=== PATIENT | male | born 1960 | race African-American/Black ===

== ENCOUNTER 2016-08-07 07:50 | Emergency (ER) | payer OTHER ==
[~2016-08-07] VITALS: Ht 180.3 cm; Wt 100.0 kg
[~2016-08-07 07:50] MED LIST: 1-ME1LIQ PO; ATOR80TA PO; GLYB5TAB3 PO; LISI40TA PO; LORTA5 PO; METF-324 PO
[2016-08-07 07:52] VITALS: BP 216/117; PULSE 97; RESP 20; TEMP 98.7; O2SAT 99
[2016-08-07] MEDS ORDERED: ATOR1TAB18 PO (08:18)
[2016-08-07] MEDS ORDERED: GLYB5TAB3 PO (08:18)
[2016-08-07] MEDS ORDERED: HYDR-3516 PO (08:19)
[2016-08-07] MEDS ORDERED: METO50TA PO (08:24)
[2016-08-07] MEDS ORDERED: LISI40TA PO (08:24)
[2016-08-07] MEDS ORDERED: METF-382 PO (08:24)
[2016-08-07] MEDS ORDERED: DIVA250T PO (08:24)
[2016-08-07] MEDS ORDERED: SODIUM CHLOR 0.9% 1000 ML INJ 1,000 ML IV ONE (08:45)
[2016-08-07 09:12] LABS: AUTOMATED NEUTROPHIL # 2.4 TH/MM3 (1.8-7.7); BASOPHIL % 0.4 % (0.0-2.0); EOSINOPHIL # 0.1 TH/MM3 (0-0.4); EOSINOPHIL % 2.1 % (0.0-4.0); HEMATOCRIT 39.4 % (39.0-51.0); HEMO FLAGS DIFF FINAL; LYMPH % 43.4 % (9.0-44.0); LYMPHOCYTE # 2.2 TH/MM3 (1.0-4.8); MEAN CELL VOLUME 87.9 FL (80.0-100.0); MEAN CORPUSCULAR HEMOGLOBIN 30.2 PG (27.0-34.0); MEAN CORPUSCULAR HGB CONC 34.4 % (32.0-36.0); MONO % 6.9 % (0.0-8.0); NEUT % 47.2 % (16.0-70.0); PLATELET COUNT 270 TH/MM3 (150-450); RED BLOOD COUNT 4.48 MIL/MM3 (4.50-5.90); RED CELL DISTRIBUTION WIDTH 12.9 % (11.6-17.2); WHITE BLOOD COUNT 5.1 TH/MM3 (4.0-11.0)
[2016-08-07 09:18] LABS: BLOOD, URINE NEG (NEG); GLUCOSE,URINE 300 mg/dL (NEG); KETONE, URINE TRACE mg/dL (NEG); NITRITE,URINE NEG (NEG); PH, URINE 6.5 (5.0-8.5)
[2016-08-07 09:19] LABS: COMMENT (UR) CULT NOT INDICATED; CULTURE IF INDICATED CULT NOT INDICATED; URINE COLOR STRAW (YELLW/STRAW)
--- NOTE | 2016-08-07 09:24 | PD ---
HPI Chief Complaint: Dizziness Time Seen by Provider: 08:37 Travel History International Travel<30 days: No Contact w/Intl Traveler<30days: No Traveled to known affect area: No History of Present Illness HPI Is a 56-year-old man who presents to the emergency department because he is feeling queasy and dizzy this morning. He is a history diabetes and hypertension. States he was drinking beer late last night. He woke up sort of feeling funny. He took his blood pressure and it was elevated. He took his diabetes and blood pressure medicines just before coming to the emergency department. States since being here is feeling better. No other complaints. History Past Medical History Narrative Medical Hypertension Diabetes Tetanus Vaccination: > 5 Years Influenza Vaccination: No Past Surgical History Surgical History: No Previous Surgery Social History Alcohol Use: Yes (DAILY ) Tobacco Use: No Allergies-Medications (Allergen,Severity, Reaction): Coded Allergies: Celebrex (Verified Allergy, Severe, HIVES, 08/07/16) Reported Meds & Prescriptions Reported Meds & Active Scripts Active Reported Metoprolol Tartrate 50 Mg Tab 50 Mg PO BID Divalproex DR (Divalproex Sodium) 250 Mg Tabdr 250 Mg PO BID Metformin ER (Metformin HCl) 1,000 Mg Kelsie 1,000 Mg PO DAILY With evening meal Lisinopril 40 Mg Tab 40 Mg PO DAILY Hydrocodone-Acetaminophen 5-325 mg Tab 1 Tab PO Q6H PRN Glyburide 5 Mg Tab 5 Mg PO BID Take with meals at the same time each day Atorvastatin (Atorvastatin Calcium) 80 Mg Tab 80 Mg PO HS Review of Systems Except as stated in HPI: all other systems reviewed are Neg Physical Exam Narrative GENERAL: Well-appearing 56-year-old man, no acute distress. SKIN: Focused skin assessment warm/dry. HEAD: Atraumatic. Normocephalic. CARDIOVASCULAR: Regular rate and rhythm. No murmur appreciated. RESPIRATORY: No accessory muscle use. Clear to auscultation. Breath sounds equal bilaterally. GASTROINTESTINAL: Abdomen soft, non-tender, nondistended. Hepatic and splenic margins not palpable. MUSCULOSKELETAL: No obvious deformities. NEUROLOGICAL: Awake and alert. No obvious cranial nerve deficits. Motor grossly within normal limits. Normal speech. Data Data Last Documented VS Vital Signs Date Time Temp Pulse Resp B/P Pulse Ox O2 Delivery O2 Flow Rate FiO2 08/07/16 09:38 80 16 176/98 98 Room Air 08/07/16 07:52 98.7 Orders Complete Blood Count With Diff (08/07/16 08:38) Comprehensive Metabolic Panel (08/07/16 08:38) Urinalysis - C+S If Indicated (08/07/16 08:38) Iv Access Insert/Monitor (08/07/16 08:38) Sodium Chlor 0.9% 1000 Ml Inj (Ns 1000 M (08/07/16 08:45) Labs Laboratory Tests Test 08/07/16 08:29 White Blood Count 5.1 TH/MM3 Red Blood Count 4.48 MIL/MM3 Hemoglobin 13.5 GM/DL Hematocrit 39.4 % Mean Corpuscular Volume 87.9 FL Mean Corpuscular Hemoglobin 30.2 PG Mean Corpuscular Hemoglobin 34.4 % Concent Red Cell Distribution Width 12.9 % Platelet Count 270 TH/MM3 Mean Platelet Volume 9.8 FL Neutrophils (%) (Auto) 47.2 % Lymphocytes (%) (Auto) 43.4 % Monocytes (%) (Auto) 6.9 % Eosinophils (%) (Auto) 2.1 % Basophils (%) (Auto) 0.4 % Neutrophils # (Auto) 2.4 TH/MM3 Lymphocytes # (Auto) 2.2 TH/MM3 Monocytes # (Auto) 0.4 TH/MM3 Eosinophils # (Auto) 0.1 TH/MM3 Basophils # (Auto) 0.0 TH/MM3 CBC Comment DIFF FINAL Differential Comment Urine Color STRAW Urine Turbidity CLEAR Urine pH 6.5 Urine Specific [place] 1.006 Urine Protein NEG mg/dL Urine Glucose (UA) 300 mg/dL Urine Ketones TRACE mg/dL Urine Occult Blood NEG Urine Nitrite NEG Urine Bilirubin NEG Urine Urobilinogen LESS THAN 2.0 MG/DL Urine Leukocyte Esterase NEG Urine WBC LESS THAN 1 /hpf Microscopic Urinalysis Comment CULT NOT INDICATED Sodium Level 131 MEQ/L Potassium Level 3.3 MEQ/L Chloride Level 92 MEQ/L Carbon Dioxide Level 26.8 MEQ/L Anion Gap 12 MEQ/L Blood Urea Nitrogen 9 MG/DL Creatinine 0.80 MG/DL Estimat Glomerular Filtration 120 ML/MIN Rate Random Glucose 193 MG/DL Calcium Level 9.0 MG/DL Total Bilirubin 0.2 MG/DL Aspartate Amino Transf 79 U/L (AST/SGOT) Alanine Aminotransferase 72 U/L (ALT/SGPT) Alkaline Phosphatase 81 U/L Total Protein 8.4 GM/DL Albumin 3.9 GM/DL [facility] Medical Decision Making Medical Screen Exam Complete: Yes Emergency Medical Condition: Yes Interpretation(s) LABS: CBC unremarkable. CMP remarkable for mildly elevated glucose. UA with glucose urea, otherwise unremarkable Differential Diagnosis Dehydration, hyperglycemia, hypertension, infection, other Narrative Course Medical decision making Is a well-appearing 56-year-old man who presented with vague symptoms of sort of queasiness and dizziness this morning is now mostly resolved. I think this is probably some dehydration and maybe a little bit a hangover from drinking last night. His blood pressure is elevated initially. He took his blood pressure medicine already coming down. We'll give him some IV fluid, check some basic labs, recommend outpatient follow-up. Diagnosis Primary Impression: Dizziness Additional Instructions: Continue your current medications. Drink plenty of fluids stay well-hydrated. Follow-up with her primary doctor in the next 2-5 days if you're not feeling completely well. Return to the emergency department for any new or worsening symptoms. Med/Other Pt SpecificInfo: No Change to Meds Disposition: 01 DISCHARGE HOME Condition: Stable Madi Duggan MD Aug 07, 2016 09:24
[2016-08-07 09:37] LABS: ALKALINE PHOSPHATASE 81 U/L (45-117); ALT (GPT) 72 U/L (12-78); ANION GAP 12 MEQ/L (5-15); AST (GOT) 79 U/L (15-37); BICARBONATE 26.8 MEQ/L (21.0-32.0); BLOOD UREA NITROGEN 9 MG/DL (7-18); CHLORIDE 92 MEQ/L (98-107); GLOMERULAR FILTRATION RATE 120 ML/MIN (>89); POTASSIUM 3.3 MEQ/L (3.5-5.1); SODIUM (NA) 131 MEQ/L (136-145); TOTAL BILIRUBIN ADULT 0.2 MG/DL (0.2-1.0)
[2016-08-07 09:38] VITALS: BP 176/98; PULSE 80; RESP 16; O2SAT 98
[2016-08-07 11:55] VITALS: BP 165/82; TEMP 98
== END 2016-08-07 11:59 | disposition home or self-care (01) ==
LOC: NEPE 07:50
DX: R42 Dizziness and giddiness (principal); I10 Essential (primary) hypertension; E11.9 Type 2 diabetes mellitus without complications; Z79.4 Long term (current) use of insulin; F10.10 Alcohol abuse, uncomplicated
CPT/HCPCS: 80053; 81001; 85025; 96360; 99284; J7030

== ENCOUNTER 2016-10-07 12:34 | Emergency (ER) | payer OTHER ==
[~2016-10-07] VITALS: Ht 180.3 cm; Wt 110.0 kg
[~2016-10-07 12:34] MED LIST changes: -1-ME1LIQ PO; +ATOR1TAB18 PO; -ATOR80TA PO; +DIVA250T PO; +HYDR-3516 PO; -LORTA5 PO; -METF-324 PO; +METF-382 PO; +METO50TA PO
[2016-10-07 12:35] VITALS: BP 186/100; PULSE 115; RESP 20; TEMP 99.1; O2SAT 98
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
[2016-10-07 12:46] VITALS: BP 166/83; PULSE 105; RESP 14; TEMP 98.8; O2SAT 98
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
[2016-10-07] MEDS ORDERED: ONDANSETRON ODT 4 MG TAB PO ONE (13:15)
[2016-10-07] MEDS ORDERED: SILVER SULFADIAZINE 1% CR 50 GM JAR TOPICAL ONE (13:15)
[2016-10-07] MEDS ORDERED: HYDROmorphone HCL PF 1 MG/ML VIAL IM ONE (13:15)
[2016-10-07] MEDS ORDERED: TETANUS/DIPHTHERIA TOXOID ADULT 0.5 ML VIAL IM ONE (13:15)
[2016-10-07] MEDS ORDERED: SILV1CRE20 TOPICAL (13:55)
== END 2016-10-07 14:27 | disposition home or self-care (01) ==
LOC: NEPD 12:34
DX: T23.241A Burn of second degree of multiple right fingers (nail), including thumb, initial encounter (principal); I10 Essential (primary) hypertension; E11.9 Type 2 diabetes mellitus without complications; E78.5 Hyperlipidemia, unspecified; E78.00 Pure hypercholesterolemia, unspecified; J44.9 Chronic obstructive pulmonary disease, unspecified; K76.0 Fatty (change of) liver, not elsewhere classified; Z23 Encounter for immunization; X10.2XXA Contact with fats and cooking oils, initial encounter
CPT/HCPCS: 16000; 16020; 90471; 90714; 96372; 99284; J1170

== ENCOUNTER 2016-11-05 16:52 | Emergency (ER) | payer OTHER ==
[~2016-11-05] VITALS: Ht 188 cm; Wt 100.0 kg
[~2016-11-05 16:52] MED LIST changes: +SILV1CRE20 TOPICAL
[2016-11-05 16:53] VITALS: BP 166/86; PULSE 81; RESP 18; TEMP 98.3; O2SAT 100
[2016-11-05 17:35] LABS: AUTOMATED NEUTROPHIL # 4.6 TH/MM3 (1.8-7.7); BASOPHIL % 0.5 % (0.0-2.0); EOSINOPHIL # 0.1 TH/MM3 (0-0.4); EOSINOPHIL % 1.2 % (0.0-4.0); HEMATOCRIT 38.4 % (39.0-51.0); HEMO FLAGS DIFF FINAL; LYMPH % 29.6 % (9.0-44.0); LYMPHOCYTE # 2.3 TH/MM3 (1.0-4.8); MEAN CELL VOLUME 88.8 FL (80.0-100.0); MEAN CORPUSCULAR HEMOGLOBIN 28.8 PG (27.0-34.0); MEAN CORPUSCULAR HGB CONC 32.5 % (32.0-36.0); MONO % 8.5 % (0.0-8.0); NEUT % 60.2 % (16.0-70.0); PLATELET COUNT 310 TH/MM3 (150-450); RED BLOOD COUNT 4.33 MIL/MM3 (4.50-5.90); WHITE BLOOD COUNT 7.6 TH/MM3 (4.0-11.0)
--- NOTE | 2016-11-05 17:47 | PD ---
Physical Exam Time Seen by Provider: 17:46 Narrative 56 y/o male here with nausea, weakness, h/a which started today. Vital signs reviewed. Seen at triage desk. Awaiting bed placement. Data Data Last Documented VS Vital Signs Date Time Temp Pulse Resp B/P Pulse Ox O2 Delivery O2 Flow Rate FiO2 11/05/16 16:53 98.3 81 18 166/86 100 Room Air Orders Complete Blood Count With Diff (11/05/16 17:14) Basic Metabolic Panel (Bmp) (11/05/16 17:14) Labs Laboratory Tests Test 11/05/16 17:16 White Blood Count 7.6 TH/MM3 Red Blood Count 4.33 MIL/MM3 Hemoglobin 12.5 GM/DL Hematocrit 38.4 % Mean Corpuscular Volume 88.8 FL Mean Corpuscular Hemoglobin 28.8 PG Mean Corpuscular Hemoglobin 32.5 % Concent Red Cell Distribution Width 13.0 % Platelet Count 310 TH/MM3 Mean Platelet Volume 9.1 FL Neutrophils (%) (Auto) 60.2 % Lymphocytes (%) (Auto) 29.6 % Monocytes (%) (Auto) 8.5 % Eosinophils (%) (Auto) 1.2 % Basophils (%) (Auto) 0.5 % Neutrophils # (Auto) 4.6 TH/MM3 Lymphocytes # (Auto) 2.3 TH/MM3 Monocytes # (Auto) 0.7 TH/MM3 Eosinophils # (Auto) 0.1 TH/MM3 Basophils # (Auto) 0.0 TH/MM3 CBC Comment DIFF FINAL Differential Comment [facility] Medical Record Reviewed: Yes Supervised Visit with LAUREN: Marcos Cassidy Nov 05, 2016 17:47
[2016-11-05 18:09] LABS: BICARBONATE 27.8 MEQ/L (21.0-32.0); POTASSIUM 3.7 MEQ/L (3.5-5.1)
[2016-11-05] MEDS ORDERED: AMLO5TAB2 PO (18:14)
[2016-11-05 18:15] VITALS: BP 168/89; PULSE 71; RESP 18; O2SAT 98
[2016-11-05] MEDS ORDERED: ONDA4TAB7 SL (18:21)
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
[2016-11-05] MEDS ORDERED: ONDANSETRON HCL 4 MG/2 ML VIAL IV PUSH ONE (18:30)
[2016-11-05] MEDS ORDERED: SODIUM CHLOR 0.9% 1000 ML INJ 1,000 ML IV ONE (18:30)
== END 2016-11-05 19:01 | disposition home or self-care (01) ==
LOC: NEPD 16:52
DX: R42 Dizziness and giddiness (principal); R11.0 Nausea; R51 Headache; E11.9 Type 2 diabetes mellitus without complications; I10 Essential (primary) hypertension; E78.5 Hyperlipidemia, unspecified; E78.00 Pure hypercholesterolemia, unspecified; J44.9 Chronic obstructive pulmonary disease, unspecified; K58.9 Irritable bowel syndrome, unspecified
CPT/HCPCS: 80048; 85025; 96374; 99284; J2405; J7030

== ENCOUNTER 2017-02-25 10:08 | Emergency (ER) | payer OTHER ==
[~2017-02-25] VITALS: Ht 180.3 cm; Wt 100.0 kg
[~2017-02-25 10:08] MED LIST changes: +AMLO5TAB2 PO; -ATOR1TAB18 PO; +ATOR80TA45 PO; -DIVA250T PO; -METO50TA PO; +ONDA4TAB7 SL
[2017-02-25 10:09] VITALS: BP 189/93; PULSE 96; RESP 20; TEMP 98.2; O2SAT 100
[2017-02-25 10:44] VITALS: BP 166/89; PULSE 93; RESP 20; TEMP 98.3; O2SAT 99
[2017-02-25] MEDS ORDERED: SODIUM CHLORIDE 0.9% FLUSH 10 ML FLUSH IVF PRN (11:00)
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
[2017-02-25 11:49] LABS: AUTOMATED NEUTROPHIL # 3.3 TH/MM3 (1.8-7.7); BASOPHIL # 0.1 TH/MM3 (0-0.2); BASOPHIL % 0.8 % (0.0-2.0); EOSINOPHIL # 0.1 TH/MM3 (0-0.4); EOSINOPHIL % 1.6 % (0.0-4.0); HEMATOCRIT 37.1 % (39.0-51.0); HEMO FLAGS DIFF FINAL; LYMPH % 35.7 % (9.0-44.0); LYMPHOCYTE # 2.2 TH/MM3 (1.0-4.8); MEAN CELL VOLUME 88.6 FL (80.0-100.0); MEAN CORPUSCULAR HEMOGLOBIN 30.3 PG (27.0-34.0); MEAN CORPUSCULAR HGB CONC 34.2 % (32.0-36.0); MONO % 8.8 % (0.0-8.0); NEUT % 53.1 % (16.0-70.0); PLATELET COUNT 270 TH/MM3 (150-450); RED BLOOD COUNT 4.18 MIL/MM3 (4.50-5.90); RED CELL DISTRIBUTION WIDTH 13.7 % (11.6-17.2); WHITE BLOOD COUNT 6.2 TH/MM3 (4.0-11.0)
[2017-02-25 11:51] LABS: BACTERIA, URINE RARE /hpf; BLOOD, URINE NEG (NEG); GLUCOSE,URINE NEG (NEG); KETONE, URINE NEG (NEG); NITRITE,URINE NEG (NEG); PH, URINE 5.5 (5.0-8.5); URINE COLOR LIGHT-YELLOW (YELLW/STRAW)
[2017-02-25 11:52] LABS: COMMENT (UR) CULT NOT INDICATED; CULTURE IF INDICATED CULT NOT INDICATED
--- NOTE | 2017-02-25 11:55 | PD ---
Physical Exam Date Seen by Provider: Feb 25, 2017 Time Seen by Provider: 11:50 Narrative GENERAL: Well-nourished, well-developed male in no acute distress. Afebrile. Ambulatory. SKIN: Focused skin assessment warm/dry. HEAD: Normocephalic. EYES: No scleral icterus. No injection or drainage. NECK: Supple, trachea midline. No JVD or lymphadenopathy. CARDIOVASCULAR: Regular rate and rhythm without murmurs, gallops, or rubs. RESPIRATORY: Breath sounds equal bilaterally. No accessory muscle use. GASTROINTESTINAL: Abdomen soft, non-tender, nondistended. Data Data Last Documented VS Vital Signs Date Time Temp Pulse Resp B/P (MAP) Pulse Ox O2 Delivery O2 Flow Rate FiO2 02/25/17 10:44 98.3 93 20 166/89 (114) 99 02/25/17 10:09 Room Air Orders Orders Electrocardiogram (02/25/17 10:46) Basic Metabolic Panel (Bmp) (02/25/17 10:46) Complete Blood Count With Diff (02/25/17 10:46) Urinalysis - C+S If Indicated (02/25/17 10:46) Iv Access Insert/Monitor (02/25/17 10:46) Sodium Chloride 0.9% Flush (Ns Flush) (02/25/17 11:00) Troponin I (02/25/17 11:44) Ed Discharge Order (02/25/17 12:54) Labs Laboratory Tests Test 02/25/17 11:00 02/25/17 11:05 White Blood Count 6.2 TH/MM3 Red Blood Count 4.18 MIL/MM3 Hemoglobin 12.7 GM/DL Hematocrit 37.1 % Mean Corpuscular Volume 88.6 FL Mean Corpuscular Hemoglobin 30.3 PG Mean Corpuscular Hemoglobin Concent 34.2 % Red Cell Distribution Width 13.7 % Platelet Count 270 TH/MM3 Mean Platelet Volume 10.1 FL Neutrophils (%) (Auto) 53.1 % Lymphocytes (%) (Auto) 35.7 % Monocytes (%) (Auto) 8.8 % Eosinophils (%) (Auto) 1.6 % Basophils (%) (Auto) 0.8 % Neutrophils # (Auto) 3.3 TH/MM3 Lymphocytes # (Auto) 2.2 TH/MM3 Monocytes # (Auto) 0.5 TH/MM3 Eosinophils # (Auto) 0.1 TH/MM3 Basophils # (Auto) 0.1 TH/MM3 CBC Comment DIFF FINAL Differential Comment Blood Urea Nitrogen 14 MG/DL Creatinine 0.92 MG/DL Random Glucose 125 MG/DL Calcium Level 8.9 MG/DL Sodium Level 133 MEQ/L Potassium Level 3.7 MEQ/L Chloride Level 96 MEQ/L Carbon Dioxide Level 26.4 MEQ/L Anion Gap 11 MEQ/L Estimat Glomerular Filtration Rate 102 ML/MIN Troponin I LESS THAN 0.02 NG/ML Urine Color LIGHT-YELLOW Urine Turbidity CLEAR Urine pH 5.5 Urine Specific [place] 1.011 Urine Protein NEG mg/dL Urine Glucose (UA) NEG mg/dL Urine Ketones NEG mg/dL Urine Occult Blood NEG Urine Nitrite NEG Urine Bilirubin NEG Urine Urobilinogen LESS THAN 2.0 MG/DL Urine Leukocyte Esterase NEG Urine WBC LESS THAN 1 /hpf Urine Bacteria RARE /hpf Microscopic Urinalysis Comment CULT NOT INDICATED MDM Medical Record Reviewed: Yes Supervised Visit with LAUREN: Yes Differential Diagnosis Hyperglycemia, hangover, anemia, left-sided abnormality, GERD, CAD unlikely Narrative Course Patient signed out to me pending labs. In short this is a 56-year-old male with history of hyperlipidemia, hypertension, and diabetes who presents to the emergency room for evaluation of nonspecific complaints including nausea, dizziness, and weakness upon waking this morning. Patient has presented several times to the ER previously for same complaints. Typically associated with heavy drinking the previous night. Patient admits to this today. States upon sitting on the edge of his bed, he developed epigastric pain with nausea but no vomiting. While walking to the car, he had dizziness described as disequilibrium. Denies lightheadedness or vertigo. He reports improvement of the symptoms since arriving to the ED. States if he could just have something to eat, he would probably feel better. CBC and BMP are completely unremarkable. Troponin is less than 0.02. UA not concerning. Given patient's prior history of the same symptoms occurring after drinking alcohol and his spontaneous improvement in symptoms in the ED, he is stable for discharge. I spoke to my attending physician, Dr. Saenz, who agrees with plan and disposition. Patient is reassured and states "it is probably just alcohol." He understands and agrees to plan. Diagnosis Primary Impression: Weakness Additional Impression: Dizziness Referrals: Primary Care Physician Additional Instruction: Rest and drink plenty of fluids. Follow-up with a primary care physician. Return to the emergency room for worsening symptoms. Disposition: 01 DISCHARGE HOME Condition: Stable Viviane Julian Feb 25, 2017 11:55
[2017-02-25 12:10] LABS: BICARBONATE 26.4 MEQ/L (21.0-32.0); POTASSIUM 3.7 MEQ/L (3.5-5.1)
--- NOTE | 2017-02-26 18:19 | EKG ---
Date Performed: 02/25/2017 Time Performed: 10:20:58 PTAGE: 56 years EKG: WITHIN NORMAL LIMITS Since previous tracing, no significant change noted BORDERLINE ECG PREVIOUS TRACING : 02/18/2017 19.58 DOCTOR: Brendan Prabhakar Interpretating Date/Time 02/26/2017 18:17:37
== END 2017-02-25 13:33 | disposition home or self-care (01) ==
LOC: NEPD 10:08
DX: R53.1 Weakness (principal); R42 Dizziness and giddiness; R10.13 Epigastric pain; R51 Headache; E78.5 Hyperlipidemia, unspecified; R11.0 Nausea; I10 Essential (primary) hypertension; E11.9 Type 2 diabetes mellitus without complications; J44.9 Chronic obstructive pulmonary disease, unspecified
CPT/HCPCS: 80048; 81001; 84484; 85025; 93005; 99284

== ENCOUNTER 2017-09-22 09:43 | Emergency (ER) | payer OTHER ==
[~2017-09-22] VITALS: Ht 181.6 cm; Wt 103.0 kg
[2017-09-22 09:51] VITALS: BP 196/108; PULSE 78; RESP 16; TEMP 98.7; O2SAT 100
[2017-09-22] MEDS ORDERED: PRAV10TA PO (10:09)
[2017-09-22] MEDS ORDERED: METO25TA3 PO ×2 (10:10)
[2017-09-22 10:11] LABS: BILIRUBIN, URINE NEG (NEG); BLOOD, URINE NEG (NEG); GLUCOSE,URINE 250 mg/dL (NEG); KETONE, URINE TRACE mg/dL (NEG); NITRITE,URINE NEG (NEG); PH, URINE 5.5 (5.0-8.5); URINE COLOR YELLOW (YELLW/STRAW); URINE LEUKOCYTE ESTERASE NEG (NEG)
[2017-09-22 10:14] LABS: RBC, URINE 0-3 /hpf (0-3)
[2017-09-22 10:15] LABS: SQUAMOUS EPITHELIAL CELL URINE 0-5 /hpf (0-5)
[2017-09-22] MEDS ORDERED: SODIUM CHLORIDE 0.9% FLUSH 10 ML FLUSH IVF PRN (10:45)
[2017-09-22] MEDS ORDERED: DOXY100C PO (10:55)
--- NOTE | 2017-09-22 10:56 | PD ---
HPI Chief Complaint: Abdominal Pain Time Seen by Provider: 10:45 Travel History International Travel<30 days: No Contact w/Intl Traveler<30days: No Traveled to known affect area: No History of Present Illness HPI This 57-year-old male is concerned that he may have gonorrhea. He had unprotected sex over the weekend. Wednesday he started having some suprapubic discomfort. He has had this symptom before in the past has been secondary to gonorrhea. He has not noted any urethral discharge. He has not had fever or chills. There is been not been any sores. PFSH Past Medical History Hx Anticoagulant Therapy: Yes (asa 81mg) Cardiomyopathy: Yes (ENLARGED HEART, HEART MURMUR) Cardiovascular Problems: Yes (htn on meds) High Cholesterol: Yes COPD: Yes Coronary Artery Disease: Yes Diabetes: Yes (type 2) Patient Takes Glucophage: Yes Diminished Hearing: No Gastrointestinal Disorders: Yes (IBS, 'FATTY LIVER') Genitourinary: Yes (PT STATES PROSTATE PROBLEMS) Headaches: Yes Hypertension: Yes Influenza Vaccination: No ?: Not Past Surgical History Abdominal Surgery: No Insulin Pump: No Other Surgery: Yes (ABSCESS REMOVED FROM CHEST) Social History Alcohol Use: Yes (DAILY ) Tobacco Use: No Substance Use: Yes (marijuana) Allergies-Medications (Allergen,Severity, Reaction): Coded Allergies: celecoxib (Unverified Allergy, Severe, HIVES, 09/22/17) Reported Meds & Prescriptions Reported Meds & Active Scripts Active Reported Metoprolol Tartrate 25 Mg Tab 25 Mg PO DAILY PRN Pravastatin 10 Mg Tab 10 Mg PO DAILY Amlodipine (Amlodipine Besylate) 5 Mg Tab 5 Mg PO DAILY Metformin ER (Metformin HCl) 1,000 Mg Kelsie 1,000 Mg PO DAILY With evening meal Lisinopril 40 Mg Tab 40 Mg PO DAILY Glyburide 5 Mg Tab 5 Mg PO BID Take with meals at the same time each day Atorvastatin (Atorvastatin Calcium) 80 Mg Tab 80 Mg PO HS Review of Systems Except as stated in HPI: all other systems reviewed are Neg Physical Exam Narrative GENERAL: Well-developed male SKIN: Focused skin assessment warm/dry. HEAD: Atraumatic. Normocephalic. EYES: Pupils equal and round. No scleral icterus. No injection or drainage. ENT: No nasal bleeding or discharge. Mucous membranes pink and moist. NECK: Trachea midline. No JVD. GASTROINTESTINAL: Abdomen soft, non-tender, nondistended. Hepatic and splenic margins not palpable. Examination of the is negative. There are no penile lesions. No discharge is noted MUSCULOSKELETAL: No obvious deformities. No clubbing. No cyanosis. No edema. NEUROLOGICAL: Awake and alert. No obvious cranial nerve deficits. Motor grossly within normal limits. Normal speech. PSYCHIATRIC: Appropriate mood and affect; insight and judgment normal. Data Data Last Documented VS Vital Signs Date Time Temp Pulse Resp B/P (MAP) Pulse Ox O2 Delivery O2 Flow Rate FiO2 09/22/17 09:51 98.7 78 16 196/108 (137) 100 Orders Orders Urinalysis - C+S If Indicated (09/22/17 09:51) Gc And Chlamydia Pcr (09/22/17 10:45) Sodium Chloride 0.9% Flush (Ns Flush) (09/22/17 10:45) Ceftriaxone Inj (Rocephin Inj) (09/22/17 11:00) Lidocaine Pf 1% Inj (Xylocaine-Mpf 1% In (09/22/17 11:00) Labs Laboratory Tests Test 09/22/17 10:00 Urine Collection Type CLEAN CATCH Urine Color YELLOW Urine Turbidity CLEAR Urine pH 5.5 Urine Specific [place] 1.020 Urine Protein NEG mg/dL Urine Glucose (UA) 250 mg/dL Urine Ketones TRACE mg/dL Urine Occult Blood NEG Urine Nitrite NEG Urine Bilirubin NEG Urine Urobilinogen 0.2 MG/DL Urine Leukocyte Esterase NEG Urine RBC 0-3 /hpf Urine Squamous Epithelial Cells 0-5 /hpf Microscopic Urinalysis Comment CULT NOT INDICATED MDM Medical Decision Making Medical Screen Exam Complete: Yes Emergency Medical Condition: Yes Medical Record Reviewed: Yes Differential Diagnosis Differential includes urethritis Narrative Course There are minimal physical findings with the patient is having symptoms which have been secondary to gonorrhea in the past. I am going to treat him with Rocephin and doxycycline Diagnosis Primary Impression: Urethritis Scripts Doxycycline Hyclate (Doxycycline Hyclate) 100 Mg Cap 100 MG PO BID for Infection for 10 Days, #20 CAP 0 Refills Prov: Loenel Fu MD 09/22/17 Disposition: 01 DISCHARGE HOME Condition: Stable Leonel Fu MD Sep 22, 2017 10:56
[2017-09-22] MEDS ORDERED: LIDOCAINE HCL 1% PF 30 ML VIAL XX ONE (11:00)
== END 2017-09-22 11:16 | disposition home or self-care (01) ==
LOC: PHED 09:43
DX: N34.2 Other urethritis (principal); F12.90 Cannabis use, unspecified, uncomplicated; R01.1 Cardiac murmur, unspecified; I51.7 Cardiomegaly; I10 Essential (primary) hypertension; E78.00 Pure hypercholesterolemia, unspecified; J44.9 Chronic obstructive pulmonary disease, unspecified; I25.10 Atherosclerotic heart disease of native coronary artery without angina pectoris; E11.9 Type 2 diabetes mellitus without complications; Z87.19 Personal history of other diseases of the digestive system; Z79.899 Other long term (current) drug therapy; Z88.8 Allergy status to other drugs, medicaments and biological substances; Z79.82 Long term (current) use of aspirin
CPT/HCPCS: 81001; 87491; 87591; 96372; 99283; J0696

== ENCOUNTER 2017-10-30 21:40 | Observation (INO) ==
[2017-10-30] MEDS ORDERED: Metoprolol Inj 5 MG/5 ML Vial IV.PUSH ONE ×2 (21:56→21:58)
--- NOTE | 2017-10-30 22:02 | ED ---
HPI General Chief Complaint: Arrhythmia/Palpitations Stated Complaint: Chest pain Time Seen by Provider: 10/30/17 22:44 Source: patient Mode of arrival: ambulatory Limitations: no limitations History of Present Illness HPI narrative: Patient is a 57-year-old male who admits to smoking marijuana that he thinks was laced with some other synthetic marijuana which then caused him to go into a rapid tachycardia it started about half an hour after he smoked he said he only took 1 puff off of this joint it was unknown substance but he thinks it may have been synthetic marijuana getting home he suddenly felt his heart racing he drove himself here he says he took deep breaths and was praying to lower that he would make it here alive he arrives triage EKG is done his heart rate is at 198 beats per minute sinus tach it is regular but is too fast to know if it is SVT patient is given 2 mg of Ativan immediately and then 2.5 of Lopressor to block the catecholamine effects on his beta-1 stimulation of his heart and he slows down immediately to less than 100 he is observed troponin is sent first troponin is negative she feels much better he has a history of hypertension and diabetes his feeling his heart was palpitating very fast he felt short of breath he felt his heart was racing and he was very worried one point he said "please do not let me stroke out" Related Data Home Medications Medication Instructions Recorded Confirmed amlodipine 5 mg PO DAILY 10/21/17 10/30/17 glyburide 5 mg PO BID 10/21/17 10/30/17 lisinopril 40 mg PO DAILY 10/21/17 10/30/17 metformin 1,000 mg PO DAILY 10/21/17 10/30/17 metoprolol succinate 25 mg PO DAILY 10/21/17 10/30/17 pravastatin 10 mg PO DAILY 10/21/17 10/30/17 Previous Rx's Medication Instructions Recorded pantoprazole [Protonix] 40 mg PO DAILY #30 tab 10/28/17 Allergies Allergy/AdvReac Type Severity Reaction Status Date / Time celecoxib Allergy Severe HIVES Verified 10/28/17 13:39 Review of Systems Cardiovascular Reports lightheadedness, Reports palpitations and Reports other Comments: Racing heart rate [facility] Social History Social History Substance History: Past History Second Hand Smoke Exposure: No Smoking Status: Never smoker How Often Do You Have a Drink Containing Alcohol: 2 to 3 times a week Recent Travel in [facility] within the Last 8 Weeks: No Recent Out of Country Travel within the Last 8 Weeks: No Exam Narrative Exam Narrative: GENERAL: Patient appears anxious his heart rate is 198 on his EKG he is not diaphoretic but he appears obviously anxious and can feel his heart is racing. He says "Dr. do not let me stroke out " SKIN: Warm and dry. HEAD: Atraumatic. Normocephalic. EYES: Pupils equal and round. No scleral icterus. No injection or drainage. ENT: No nasal bleeding or discharge. Mucous membranes pink and moist. NECK: Trachea midline. No JVD. CARDIOVASCULAR: SVT at a rate of 198 RESPIRATORY: No accessory muscle use. Clear to auscultation. Breath sounds equal bilaterally. Chest has a right suprapectoral incision from a prior lipoma excision GASTROINTESTINAL: Abdomen soft, non-tender, nondistended. Hepatic and splenic margins not palpable. MUSCULOSKELETAL: Extremities without clubbing, cyanosis, or edema. No obvious deformities. NEUROLOGICAL: Awake and alert. No obvious cranial nerve deficits. Motor grossly within normal limits. Five out of 5 muscle strength in the arms and legs. Normal speech. PSYCHIATRIC: Appropriate mood and affect; insight and judgment normal. Course Initial Documented Vital Signs Pulse Rate 199 H 10/30/17 21:54 Respiratory Rate 20 10/30/17 21:54 Blood Pressure 135/76 10/30/17 21:54 Pulse Oximetry 99 10/30/17 21:54 Last Documented Vital Signs Temperature 98.2 F 10/30/17 22:09 Pulse Rate 77 10/31/17 05:38 Respiratory Rate 16 10/31/17 05:37 Blood Pressure 163/95 H 10/31/17 05:37 Pulse Oximetry 98 10/31/17 02:51 Medical Decision Making MDM Narrative Medical decision making narrative: Patient is immediately brought into the exam room and given 1-1/2 mg of Ativan IV to walk the possible supratentorial stimulation of his beta-1 as well as block catecholamine stimulation of his beta -1 heart receptors he is also given Lopressor 2.5 mg 1 which slows his heart now down to below 95 and he is comfortable labs are sent then his troponin which was 0.03 rises just slightly to 0.06 I admit him to telemetry obvious to observe for any reperfusion arrhythmias that could occur due to the demand ischemia that he seems to have had from overstimulation of his Beta1 heart receptors admit telemetry obvious aspirin is given and Nitropaste Differential Diagnosis Differential Diagnosis: Patient is having a reaction to some drug that he smoked he says it was may be synthetic marijuana differential diagnosis is over catecholamine stimulation of his heart causing a beta-1 stimulation now is in SVT versus vasospasm of Prinzmetal's ischemia to his heart causing SVT versus anxiety induced supratentorial S VT versus a flutter versus accessory pathway Lab Data Result diagrams: 10/31/17 00:20 10/31/17 00:20 Lab Results 10/31/17 10/31/17 10/31/17 Range/Units 00:20 00:20 02:20 WBC 10.3 (4.0-11.0) th/mm3 RBC 4.45 L (4.50-5.90) mil/mm3 Hgb 12.9 L (13.0-17.0) gm/dL Hct 39.0 (39.0-51.0) % MCV 87.8 (80.0-100.0) fL MCH 29.1 (27.0-34.0) pg MCHC 33.2 (32.0-36.0) % RDW 13.5 (11.6-17.2) % Plt Count 273 (150-450) th/mm3 MPV 10.9 (7.0-11.0) fL Neut % (Auto) 46.6 (16.0-70.0) % Lymph % (Auto) 42.6 (9.0-44.0) % Nobles % (Auto) 9.0 H (0.0-8.0) % Eos % (Auto) 1.5 (0.0-4.0) % Baso % (Auto) 0.3 (0.0-2.0) % Neut # (Auto) 4.8 (1.8-7.7) th/mm3 Lymph # (Auto) 4.4 (1.0-4.8) th/mm3 Nobles # (Auto) 0.9 (0.0-0.9) th/mm3 Eos # (Auto) 0.2 (0.0-0.4) th/mm3 Baso # (Auto) 0.0 (0.0-0.2) th/mm3 WBC Differential . Differential Comment Auto diff final Sodium 134 L (136-145) meq/L Potassium 3.1 L (3.5-5.1) meq/L Chloride 95 L (98-107) meq/L Carbon Dioxide 22.9 (21.0-32.0) meq/L Anion Gap 16 H (5-15) meq/L BUN 14 (7-18) mg/dL Creatinine 1.06 (0.60-1.30) mg/dL Estimated GFR 87 L (>89) mL/min Random Glucose 116 H (74-106) mg/dL Calcium 9.2 (8.5-10.1) mg/dL Total Bilirubin 0.3 (0.2-1.0) mg/dL AST 40 H (15-37) U/L ALT 62 (12-78) U/L Alkaline Phosphatase 71 (45-117) U/L Troponin I Less than 0.02 L 0.06 H (0.02-0.05) ng/mL Total Protein 8.5 H (6.4-8.2) g/dL Albumin 4.1 (3.4-5.0) g/dL Discharge Plan Discharge Disposition Patient Disposition: 30 Still Patient Discharge Details Diagnosis: Supraventricular tachycardia Physicians Team ED Provider: Duglas Vazquez Primary Care Provider: NON STAFF,PROVIDER Attending Provider: Bony Lord Discharge Interventions Interventions: Vital Signs Last Done: 10/31/17 02:51 Status ED Status: Admitted Observation Patient
[2017-10-31 00:44] LABS: Baso % (Auto) 0.3 % (0.0-2.0); Eos # (Auto) 0.2 th/mm3 (0.0-0.4); Eos % (Auto) 1.5 % (0.0-4.0); Hemoglobin 12.9 gm/dL (13.0-17.0); Lymph # (Auto) 4.4 th/mm3 (1.0-4.8); Lymph % (Auto) 42.6 % (9.0-44.0); Mean Corpuscular HGB Conc 33.2 % (32.0-36.0); Mean Corpuscular Hemoglobin 29.1 pg (27.0-34.0); Mean Corpuscular Volume 87.8 fL (80.0-100.0); Mean Platelet Volume 10.9 fL (7.0-11.0); Mono # (Auto) 0.9 th/mm3 (0.0-0.9); Neut # (Auto) 4.8 th/mm3 (1.8-7.7); Neut % (Auto) 46.6 % (16.0-70.0); Platelet Count 273 th/mm3 (150-450); Red Blood Count 4.45 mil/mm3 (4.50-5.90); Red Cell Distribution Width 13.5 % (11.6-17.2); White Blood Count 10.3 th/mm3 (4.0-11.0)
[2017-10-31 01:04] LABS: Alanine Aminotransferase 62 U/L (12-78); Albumin 4.1 g/dL (3.4-5.0); Alkaline Phosphatase 71 U/L (45-117); Anion Gap 16 meq/L (5-15); Aspartate Aminotransferase 40 U/L (15-37); Blood Urea Nitrogen 14 mg/dL (7-18); Calcium 9.2 mg/dL (8.5-10.1); Carbon Dioxide 22.9 meq/L (21.0-32.0); Chloride 95 meq/L (98-107); Glomerular Filtration Rate 87 mL/min (>89); Glucose,Random 116 mg/dL (74-106); Potassium 3.1 meq/L (3.5-5.1); Sodium 134 meq/L (136-145); Total Protein 8.5 g/dL (6.4-8.2)
[2017-10-31] MEDS ORDERED: Morphine Inj 4 MG/ML Vial IV.PUSH PRN (05:06)
[2017-10-31] MEDS ORDERED: Temazepam 15 MG Capsule PO PRN (05:07)
[2017-10-31] MEDS ORDERED: Acetaminophen 325 MG Tablet PO PRN (05:07)
[2017-10-31] MEDS ORDERED: Bisacodyl 10 MG Supp RECTAL PRN (05:07)
[2017-10-31] MEDS: Sod Chloride 0.9% Inj 1,000 ML IV.CONT SCH ×2 (05:37→16:55)
[2017-10-31] MEDS ORDERED: Senna/Docusate Sodium 8.6/50 MG Tablet PO SCH (09:00)
[2017-10-31 10:38] LABS: Amphetamine Screen,Urine Neg (Neg); Barbiturate Screen,Urine Neg (Neg); Cannabinoid Screen,Urine Pos (Neg); Cocaine Screen,Urine Neg (Neg)
[2017-10-31 10:39] LABS: Opiate Screen,Urine Neg (Neg)
[2017-10-31] MEDS ORDERED: Metoprolol Tartrate 25 MG Tablet PO SCH (12:00)
--- NOTE | 2017-10-31 12:02 | P.HPIM ---
History of Present Illness Primary Care Physician: PROVIDER NON STAFF History of Present Illness: 57-year-old male history of diabetes, hypertension who presents with acute onset of palpitations last night after trying special marijuana from a new dealer. He denies any chest pain. Heart rate was noted to be in the 190s on admission, and SVT. This resolved after metoprolol. Patient says he is feeling much better now, feels like going home. Denies any chest pain or shortness of breath. He says he will not be trying drugs again. [facility] - History History Provided By: Patient - Medical History Medical History: Medical History (Last Reviewed 10/30/17 @ 22:11 by Rashida Muñoz) Diabetes mellitus Heart palpitations Hypercholesteremia Hypertension Murmur, cardiac Prostatitis - Tobacco History Second Hand Smoke Exposure: No Smoking Status: Never smoker - Alcohol History How Often Do You Have a Drink Containing Alcohol: 2 to 3 times a week - Substance Use History Substance History: Past History - Substance Use Type Marijuana Status: Early Remission Route Used: Inhalation - Travel History Recent Travel in the [place] Within the Last 8 Weeks: No Recent Travel Out of the Country Within the Last 8 Weeks: No - Immunization History Tetanus Immunization: Unsure Medications and Allergies Active Medications: Active Medications Acetaminophen (Tylenol) 650 mg PO Q4H PRN PRN Reason: Temp > 100.4 Al Hydroxide/Mg Hydroxide (Milk Of Magnesia Liq) 30 ml PO Q12H PRN PRN Reason: Mild Constipation Bisacodyl (Dulcolax Supp) 10 mg RECTAL DAILY PRN PRN Reason: SEVERE CONSITIPATION Glyburide (Diabeta) 5 mg PO BIDAC [facility] Sodium Chloride (Ns Inj) 1,000 mls @ 100 mls/hr IV.CONT .Q10H [facility] Last Admin: 10/31/17 05:37 Dose: 100 mls/hr Lactulose (Lactulose Liq) 30 ml PO DAILY PRN PRN Reason: SEVERE CONSITIPATION Lorazepam (Ativan Inj) 1 mg IV.PUSH Q4H PRN PRN Reason: AGITATION/CHEST PAIN Metoprolol Tartrate (Lopressor) 25 mg PO BID [facility] Morphine Sulfate (Morphine Inj) 2 mg IV.PUSH Q4H PRN PRN Reason: PAIN 6-10 Ondansetron HCl (Zofran Odt) 4 mg PO Q6H PRN PRN Reason: NAUSEA OR VOMITING Pantoprazole Sodium (Protonix) 40 mg PO DAILY [facility] Pravastatin Sodium (Pravachol) 10 mg PO DAILY [facility] Senna/Docusate Sodium (Nayeli-Colace) 1 tab PO BID [facility] Sennosides (Senokot) 17.2 mg PO Q12H PRN PRN Reason: Moderate Constipation Temazepam (Restoril) 15 mg PO HS PRN PRN Reason: INSOMNIA Allergies Allergy/AdvReac Type Severity Reaction Status Date / Time celecoxib Allergy Severe HIVES Verified 10/28/17 13:39 Home Medications Medication Instructions Recorded Confirmed Type amlodipine 5 mg PO DAILY 10/21/17 10/30/17 History glyburide 5 mg PO BID 10/21/17 10/30/17 History lisinopril 40 mg PO DAILY 10/21/17 10/30/17 History metformin 1,000 mg PO DAILY 10/21/17 10/30/17 History metoprolol succinate 25 mg PO DAILY 10/21/17 10/30/17 History pravastatin 10 mg PO DAILY 10/21/17 10/30/17 History Exam Vital signs: Vital Signs 10/30/17 21:54 10/30/17 22:09 10/30/17 22:13 Temperature 98.2 F Pulse Rate 199 H 199 H 91 H Respiratory Rate 20 20 18 Blood Pressure 135/76 135/76 135/76 Pulse Oximetry 99 99 96 10/31/17 02:51 10/31/17 05:37 10/31/17 05:38 Temperature Pulse Rate 68 77 77 Respiratory Rate 16 16 Blood Pressure 126/68 163/95 H Pulse Oximetry 98 10/31/17 07:57 Temperature 98.0 F Pulse Rate 59 L Respiratory Rate 18 Blood Pressure 127/74 Pulse Oximetry 98 Intake & Output 10/30/17 10/31/17 10/31/17 18:59 06:59 18:59 Output Total 750 / 750 Balance -750 / -750 Weight 104.512 kg Output: Urine 750 / 750 Other: # Voids 2 Narrative: GENERAL: Patient sitting up in bed. Appears comfortable. SKIN: Warm and dry. HEAD: Normocephalic. EYES: No scleral icterus. No injection or drainage. NECK: Supple, trachea midline. No JVD. CARDIOVASCULAR: Regular rate and rhythm without murmurs, gallops, or rubs. RESPIRATORY: Breath sounds equal bilaterally. No accessory muscle use. GASTROINTESTINAL: Abdomen soft, non-tender, nondistended. MUSCULOSKELETAL: No cyanosis, or edema. BACK: Nontender without obvious deformity. No CVA tenderness. Results - Labs CBC & Chem 7: 10/31/17 00:20 10/31/17 00:20 Labs: Short CBC 10/31/17 Range/Units 00:20 WBC 10.3 (4.0-11.0) th/mm3 Hgb 12.9 L (13.0-17.0) gm/dL Hct 39.0 (39.0-51.0) % Plt Count 273 (150-450) th/mm3 BMP 10/31/17 00:20 Sodium 134 L Potassium 3.1 L Chloride 95 L Carbon Dioxide 22.9 BUN 14 Creatinine 1.06 Calcium 9.2 Cardiac Enzymes 10/31/17 10/31/17 Range/Units 00:20 02:20 Troponin I Less than 0.02 L 0.06 H (0.02-0.05) ng/mL Liver Function 10/31/17 Range/Units 00:20 Total Bilirubin 0.3 (0.2-1.0) mg/dL AST 40 H (15-37) U/L ALT 62 (12-78) U/L Alkaline Phosphatase 71 (45-117) U/L Albumin 4.1 (3.4-5.0) g/dL Caprini VTE Risk Assessment Caprini VTE Risk Assessment: No/Low Risk (score <= 1) Caprini Risk Assessment Model: Point Value = 1 Point Value = 2 Point Value = 3 Point Value = 5 Age 41-60 Minor surgery BMI > 25 kg/m2 Swollen legs Varicose veins or History of unexplained or recurrent spontaneous Oral contraceptives or hormone replacement Sepsis (< 1 month) Serious lung disease, including pneumonia (< 1 month) Abnormal pulmonary function Acute myocardial infarction Congestive heart failure (< 1 month) History of inflammatory bowel disease Medical patient at bed rest Age 61-74 Arthroscopic surgery Major open surgery (> 45 min) Laparoscopic surgery (> 45 min) Malignancy Confined to bed (> 72 hours) Immobilizing plaster cast Central venous access Age >= 75 History of VTE Family history of VTE Factor V Leiden Prothrombin [id number] Lupus anticoagulant Anticardiolipin antibodies Elevated serum homocysteine Heparin-induced thrombocytopenia Other congenital or acquired thrombophilia Stroke (< 1 month) Elective arthroplasty Hip, pelvis, or leg fracture Acute spinal cord injury (< 1 month) Prophylaxis Regimen: Total Risk Factor Score Risk Level Prophylaxis Regimen 0-1 Low Early ambulation 2 Moderate Order ONE of the following: *Sequential Compression Device (SCD) *Heparin 5000 units SQ BID 3-4 Higher Order ONE of the following medications: *Heparin 5000 units SQ TID *Enoxaparin/Lovenox 40 mg SQ daily (WT < 150 kg, CrCl > 30 mL/min) *Enoxaparin/Lovenox 30 mg SQ daily (WT < 150 kg, CrCl > 10-29 mL/min) *Enoxaparin/Lovenox 30 mg SQ BID (WT < 150 kg, CrCl > 30 mL/min) AND/OR *Sequential Compression Device (SCD) 5 or more Highest Order ONE of the following medications: *Heparin 5000 units SQ TID (Preferred with Epidurals) *Enoxaparin/Lovenox 40 mg SQ daily (WT < 150 kg, CrCl > 30 mL/min) *Enoxaparin/Lovenox 30 mg SQ daily (WT < 150 kg, CrCl > 10-29 mL/min) *Enoxaparin/Lovenox 30 mg SQ BID (WT < 150 kg, CrCl > 30 mL/min) AND *Sequential Compression Device (SCD) Assessment and Plan - Plan //SVT. Heart rate appears controlled at this time. Patient without any chest pain. Troponin is mildly elevated secondary to heart rate in the 190s secondary to SVT. Will increase metoprolol dosage. Have advised patient to stay away from new drugs, and to stay away from all drugs //Hypokalemia. Potassium 3.1. Will check repeat potassium. //Diabetes mellitus. Chronic. Diabetic diet and insulin sliding scale. //Hypertension. Blood pressure acceptable. Will discontinue amlodipine and increase metoprolol. ///Hyperlipidemia. Continue home meds at discharge. //GERD. Chronic. Continue home meds.
[2017-10-31 12:36] VITALS: O2SAT 99
[2017-10-31 13:45] LABS: Alanine Aminotransferase 45 U/L (12-78); Albumin 3.4 g/dL (3.4-5.0); Alkaline Phosphatase 58 U/L (45-117); Anion Gap 7 meq/L (5-15); Aspartate Aminotransferase 21 U/L (15-37); Blood Urea Nitrogen 15 mg/dL (7-18); Carbon Dioxide 29.9 meq/L (21.0-32.0); Chloride 103 meq/L (98-107); Glomerular Filtration Rate Greater Than 89 mL/min (>89); Glucose,Random 89 mg/dL (74-106); Potassium 3.7 meq/L (3.5-5.1); Sodium 140 meq/L (136-145); Total Protein 7.1 g/dL (6.4-8.2)
--- NOTE | 2017-10-31 16:00 | ECG ---
Date Performed: 10/30/2017 Time Performed: 21:42:47 PTAGE: 57 years EKG: RAPID SUPRAVENTRICULAR TACHYCARDIA WITH RATE OF 198, MOST LIKELY PAROXYSMAL SUPRAVENTRICULA R TACHYCARDIA VERSUS ATRIAL FLUTTER WITH 2:1 CONDUCTION, WHICH IS LESS LIKELY CONSIDERING THE HEART R ATE DIFFUSE NONSPECIFIC ST-T CHANGE Compared to previous tracing, the supraventricular tachycardia is new and the ST-T changes are new. Clinical correlation and follow up tracings recommended. ABNORMAL ECG PREVIOUS TRACING : 10/28/2017 13.58 DOCTOR: Brendan Prabhakar Interpretating Date/Time 10/31/2017 15:58:32
[2017-10-31 16:51] VITALS: BP 136/81; PULSE 53; RESP 18; TEMP 97.6
== END 2017-10-31 17:45 | disposition home or self-care (01) ==
LOC: NEPC 21:40 → NEDA 21:40 → NEPFCDU 21:40
PROVIDERS: ADMIT Internal Medicine; ATTEND Internal Medicine

== ENCOUNTER 2017-11-09 20:31 | Observation (INO) ==
--- NOTE | 2017-11-09 22:49 | XR ---
EXAM DATE: 11/09/2017 10:48 PM EDT AGE/SEX: 57 years / Male INDICATIONS: Chest pain and chest palpitations. CLINICAL DATA: This is the patient's initial encounter. Patient reports that signs and symptoms have been present for 1 day and indicates a pain score of 2/10. MEDICAL/SURGICAL HISTORY: Hypertension. Diabetes mellitus type II. None. COMPARISON: [facility] – [place], CHEST 2V PA&LAT, 10/28/2017. . FINDINGS: A single AP view of the chest demonstrates the lungs to be symmetrically aerated without evidence of mass, infiltrate or effusion. The cardiomediastinal contours are unremarkable. Osseous structures a re intact. CONCLUSION: No acute findings. Electronically signed by: Britton Isabel MD 11/09/2017 10:48 PM EDT
--- NOTE | 2017-11-09 22:58 | ED ---
HPI General Chief complaint: Abdominal Pain Stated complaint: Heart Palpitations Time Seen by Provider: 11/09/17 22:14 Source: patient and family Limitations: no limitations History of Present Illness HPI narrative: The patient is a 57 year old male who presents to the [facility] emergency department with a history of chest pain that he describes as an aching sensation in the left side of his chest that occurs randomly when he develops palpitations. He reports that over the last week and a half he has had intermittent palpitations. He has been seen twice in the hospital regarding this. On one occasion he was admitted to the hospital, the other occasion he was seen in the emergency department. He reports that he underwent a CT scan of the chest that was unremarkable. He reports that he has been told that he has cardiac enlargement. He reports that he has a follow-up appointment scheduled with Dr. Torres to be seen for the first time by him in follow-up. He denies having a stress test regarding this. He reports that he last had a stress test on 11-12 years ago. He reports that the pain lasts for proximally 45 minutes after the palpitations began. He reports that there is nausea without vomiting. He reports having diaphoresis. He reports having associated shortness of breath. He denies having any radiation of the pain. The patient reports having a history of hypertension, hyperlipidemia, diabetes mellitus. He denies any prior history of coronary artery disease. The patient reports that the symptoms occur randomly. The patient reports that it occurred again while he was watching TV prior to arrival. On review of systems otherwise , the patient denies having any known recent fevers, cough, congestion, neck pain, vomiting, diarrhea, urinary symptoms, or neurologic symptoms. The patient additionally reports having a fluttering sensation in his upper abdomen on the left when he developed the palpitations in his chest. Related Data Home Medications Medication Instructions Recorded Confirmed glyburide 5 mg PO BID 10/21/17 11/09/17 lisinopril 40 mg PO DAILY 10/21/17 11/06/17 metformin 1,000 mg PO DAILY 10/21/17 11/06/17 pravastatin 10 mg PO DAILY 10/21/17 11/06/17 amlodipine 10 mg PO DAILY 11/06/17 11/06/17 ciprofloxacin HCl 500 mg PO BID 11/06/17 11/06/17 cyclobenzaprine 10 mg PO TID 11/06/17 11/06/17 tamsulosin 0.4 mg PO DAILY 11/06/17 11/06/17 amlodipine 10 mg PO DAILY 11/09/17 11/09/17 Previous Rx's Medication Instructions Recorded pantoprazole [Protonix] 40 mg PO DAILY #30 tab 10/28/17 metoprolol tartrate 25 mg PO BID 30 Days #60 tab 10/31/17 Allergies Allergy/AdvReac Type Severity Reaction Status Date / Time celecoxib Allergy Severe HIVES Verified 11/09/17 21:22 Review of Systems ROS Unobtainable All other systems reviewed negative except as stated in HPI Constitutional Denies fever(s) Eyes Denies change in vision ENT Denies headache(s) and Denies nasal congestion Cardiovascular Denies chest pain Respiratory Denies dyspnea Gastrointestinal Denies abdominal pain Genitourinary Denies difficulty urinating Musculoskeletal Denies myalgias Integumentary/Breasts Denies rash Neurologic Denies headache(s) Psychiatric Denies depression Endocrine Denies polyuria Hematologic/Lymphatic Denies easy bruising PMFSH Medical History Medical History Prostatitis (Acute) Murmur, cardiac (Acute) Heart palpitations (Acute) Hypercholesteremia (Acute) Hypertension (Acute) Diabetes mellitus (Acute) Surgical History Surgical History No history of previous surgery (Acute) Social History Social History Substance History: Active Abuse Second Hand Smoke Exposure: Yes Smoking Status: Never smoker How Often Do You Have a Drink Containing Alcohol: 2 to 4 times a month Recent Travel in [facility] within the Last 8 Weeks: No Recent Out of Country Travel within the Last 8 Weeks: No Substance Abuse Detail Marijuana: Substance Use Status: Active Reason for Use: Socialization Immunization History Tetanus Immunization: Never Vaccinated Hx Influenza Vaccine This Season: No Exam Const General: cooperative, no acute distress and well developed Nutritional Appearance: well nourished Orientation: alert, awake and oriented x3 HENMT Head: normocephalic and atraumatic Nose: no nasal discharge and no epistaxis Mouth: moist mucous membranes Throat: posterior oropharynx normal and uvula midline Eyes Sclera: normal sclerae Pupils: PERRL Neck Neck: no meningeal signs, trachea midline and no JVD Resp Effort & Inspection: no use of accessory muscles Auscultation: clear to auscultation bilaterally Cardio Rate: regular rate Rhythm: regular rhythm Heart Sounds: no gallops, murmur (1/6 systolic murmur audible, no gallops or rubs.) and no rubs GI Inspection: non-distended Palpation: soft, no hepatosplenomegaly, no guarding, not rigid and nontender Auscultation: normal bowel sounds Back/Spine/Pelvis Back: no CVA tenderness Skin General: dry skin (warm) Neuro General: alert and awake Cranial Nerves: other (No facial asymmetry peer) Speech: speech normal Motor: no movement abnormalities noted Extrem General: normal to inspection (No calf tenderness on palpation.), no clubbing, no cyanosis and no edema Psych Mood: congruent mood Affect: normal affect Judgment: judgment good Course Initial Documented Vital Signs Temperature 98.5 F 11/09/17 21:22 Pulse Rate 81 11/09/17 21:22 Respiratory Rate 16 11/09/17 21:22 Blood Pressure 166/91 H 11/09/17 21:22 Pulse Oximetry 100 11/09/17 21:22 Last Documented Vital Signs Temperature 98.5 F 11/09/17 21:22 Pulse Rate 63 11/10/17 01:38 Respiratory Rate 18 11/10/17 01:38 Blood Pressure 139/67 11/10/17 01:38 Pulse Oximetry 99 11/09/17 22:33 Medical Decision Making MDM Narrative Medical decision making narrative: During the course of the patient's emergency department visit, the patient's history, examination, and differential diagnosis were reviewed with the patient. The patient was placed on a cardiac care unit nurse with oximetry and frequent blood pressure monitoring. The patient had IV access obtained and blood work sent for analysis. A diagnostic evaluation was started regarding this patient's chest pain and palpitations. The patient was initially provided nitroglycerin, and the patient did report taking an adult aspirin prior to arrival. The patient's laboratory studies are remarkable for a white count of 7.4, platelets 328, differential remarkable for 8.2 monocytes, hemoglobin 12.6, PT 10.8, PTT 31, chemistry is remarkable for a troponin I of less than 0.02, total protein 8.4, CPK within normal limits, sodium 135, glucose 135, AST 13. A chest x-ray revealed no acute findings. The patient denies having any recent stress testing done. The patient will be admitted to the chest pain center for rule out serial cardiac enzyme protocol followed by stress testing. The patient's results were discussed with the patient, including the plan of care. I explained that further testing and/ or monitoring is indicated based on the patient's history, examination, and/ or laboratory findings. Therefore, I recommended admission for additional evaluation. The patient expressed understanding and was agreeable with this plan. The patient was admitted to the hospital in stable condition and sent to a bed under the care of the [facility]. Lab Data Result diagrams: 11/09/17 22:50 11/09/17 22:50 Lab Results 11/09/17 11/09/17 11/09/17 Range/Units 22:50 22:50 22:50 WBC 7.4 (4.0-11.0) th/mm3 RBC 4.32 L (4.50-5.90) mil/mm3 Hgb 12.6 L (13.0-17.0) gm/dL Hct 37.7 L (39.0-51.0) % MCV 87.2 (80.0-100.0) fL MCH 29.2 (27.0-34.0) pg MCHC 33.5 (32.0-36.0) % RDW 13.1 (11.6-17.2) % Plt Count 328 (150-450) th/mm3 MPV 10.1 (7.0-11.0) fL Neut % (Auto) 62.6 (16.0-70.0) % Lymph % (Auto) 27.9 (9.0-44.0) % [place] % (Auto) 8.2 H (0.0-8.0) % Eos % (Auto) 0.9 (0.0-4.0) % Baso % (Auto) 0.4 (0.0-2.0) % Neut # (Auto) 4.6 (1.8-7.7) th/mm3 Lymph # (Auto) 2.1 (1.0-4.8) th/mm3 [place] # (Auto) 0.6 (0.0-0.9) th/mm3 Eos # (Auto) 0.1 (0.0-0.4) th/mm3 Baso # (Auto) 0.0 (0.0-0.2) th/mm3 WBC Differential . Differential Comment Auto diff final PT 10.8 (9.8-11.6) sec INR 1.1 Ratio APTT 31.0 H (24.3-30.1) sec Sodium 135 L (136-145) meq/L Potassium 3.6 (3.5-5.1) meq/L Chloride 99 (98-107) meq/L Carbon Dioxide 30.6 (21.0-32.0) meq/L Anion Gap 5 (5-15) meq/L BUN 12 (7-18) mg/dL Creatinine 0.91 (0.60-1.30) mg/dL Estimated GFR Greater than 89 (>89) mL/min Random Glucose 135 H (74-106) mg/dL Calcium 8.9 (8.5-10.1) mg/dL Magnesium 1.7 (1.5-2.5) mg/dL Total Bilirubin 0.2 (0.2-1.0) mg/dL AST 13 L (15-37) U/L ALT 37 (12-78) U/L Alkaline Phosphatase 70 (45-117) U/L Total Creatine Kinase 56 (39-308) U/L Troponin I Less than 0.02 L (0.02-0.05) ng/mL B-Natriuretic Peptide (0-100) pg/mL Total Protein 8.4 H (6.4-8.2) g/dL Albumin 3.9 (3.4-5.0) g/dL Lipase 261 (73-393) U/L TSH 1.560 (0.358-3.740) uIU/mL 11/09/17 11/10/17 Range/Units 22:50 01:55 WBC (4.0-11.0) th/mm3 RBC (4.50-5.90) mil/mm3 Hgb (13.0-17.0) gm/dL Hct (39.0-51.0) % MCV (80.0-100.0) fL MCH (27.0-34.0) pg MCHC (32.0-36.0) % RDW (11.6-17.2) % Plt Count (150-450) th/mm3 MPV (7.0-11.0) fL Neut % (Auto) (16.0-70.0) % Lymph % (Auto) (9.0-44.0) % [place] % (Auto) (0.0-8.0) % Eos % (Auto) (0.0-4.0) % Baso % (Auto) (0.0-2.0) % Neut # (Auto) (1.8-7.7) th/mm3 Lymph # (Auto) (1.0-4.8) th/mm3 [place] # (Auto) (0.0-0.9) th/mm3 Eos # (Auto) (0.0-0.4) th/mm3 Baso # (Auto) (0.0-0.2) th/mm3 WBC Differential Differential Comment PT (9.8-11.6) sec INR Ratio APTT (24.3-30.1) sec Sodium (136-145) meq/L Potassium (3.5-5.1) meq/L Chloride (98-107) meq/L Carbon Dioxide (21.0-32.0) meq/L Anion Gap (5-15) meq/L BUN (7-18) mg/dL Creatinine (0.60-1.30) mg/dL Estimated GFR (>89) mL/min Random Glucose (74-106) mg/dL Calcium (8.5-10.1) mg/dL Magnesium (1.5-2.5) mg/dL Total Bilirubin (0.2-1.0) mg/dL AST (15-37) U/L ALT (12-78) U/L Alkaline Phosphatase (45-117) U/L Total Creatine Kinase 50 (39-308) U/L Troponin I Less than 0.02 L (0.02-0.05) ng/mL B-Natriuretic Peptide 12 (0-100) pg/mL Total Protein (6.4-8.2) g/dL Albumin (3.4-5.0) g/dL Lipase (73-393) U/L TSH (0.358-3.740) uIU/mL Imaging Data Radiologist's impression: Chest X-Ray 11/09/17 22:27 CONCLUSION: No acute findings. ECG Data Attestation: I personally reviewed and interpreted this ECG as follows: Interpretation: The patient had a EKG done on arrival. The patient's EKG shows a sinus rhythm heart rate of 90, QRS duration is 83 ms, QTC 419 ms. Nonspecific T-wave abnormalities are noted. No acute ST segment elevation is noted. T waves are inverted in V1. Discharge Plan Discharge Disposition Patient Disposition: 30 Still Patient Discharge Details Diagnosis: Chest pain, rule out acute myocardial infarction Physicians Team ED Provider: Jennifer Vaguhn Attending Provider: Valencia Carcamo Discharge Interventions Interventions: ED Discharge Assessment Last Done: 11/10/17 04:33 Vital Signs Last Done: 11/09/17 22:33 Status ED Status: Left Department Discharge Information Discharge Date/Time: 11/10/17 04:00
[2017-11-09 23:40] LABS: Baso % (Auto) 0.4 % (0.0-2.0); Eos # (Auto) 0.1 th/mm3 (0.0-0.4); Eos % (Auto) 0.9 % (0.0-4.0); Hematocrit 37.7 % (39.0-51.0); Hemoglobin 12.6 gm/dL (13.0-17.0); Lymph # (Auto) 2.1 th/mm3 (1.0-4.8); Lymph % (Auto) 27.9 % (9.0-44.0); Mean Corpuscular HGB Conc 33.5 % (32.0-36.0); Mean Corpuscular Hemoglobin 29.2 pg (27.0-34.0); Mean Corpuscular Volume 87.2 fL (80.0-100.0); Mean Platelet Volume 10.1 fL (7.0-11.0); Mono # (Auto) 0.6 th/mm3 (0.0-0.9); Mono % (Auto) 8.2 % (0.0-8.0); Neut # (Auto) 4.6 th/mm3 (1.8-7.7); Neut % (Auto) 62.6 % (16.0-70.0); Platelet Count 328 th/mm3 (150-450); Red Blood Count 4.32 mil/mm3 (4.50-5.90); Red Cell Distribution Width 13.1 % (11.6-17.2); White Blood Count 7.4 th/mm3 (4.0-11.0)
[2017-11-09 23:54] LABS: INR 1.1 Ratio; Prothrombin Time 10.8 sec (9.8-11.6)
[2017-11-10 00:06] LABS: Albumin 3.9 g/dL (3.4-5.0); Anion Gap 5 meq/L (5-15); Aspartate Aminotransferase 13 U/L (15-37); Blood Urea Nitrogen 12 mg/dL (7-18); Calcium 8.9 mg/dL (8.5-10.1); Carbon Dioxide 30.6 meq/L (21.0-32.0); Chloride 99 meq/L (98-107); Glomerular Filtration Rate Greater Than 89 mL/min (>89); Glucose,Random 135 mg/dL (74-106); Lipase 261 U/L (73-393); Magnesium 1.7 mg/dL (1.5-2.5); Potassium 3.6 meq/L (3.5-5.1); Sodium 135 meq/L (136-145)
[2017-11-10 00:08] LABS: Alanine Aminotransferase 37 U/L (12-78)
[2017-11-10 00:17] LABS: Alkaline Phosphatase 70 U/L (45-117); Total Protein 8.4 g/dL (6.4-8.2)
[2017-11-10 00:22] LABS: Creatine Kinase 56 U/L (39-308)
[2017-11-10] MEDS ORDERED: Acetaminophen 500 MG Tablet PO PRN (01:38)
[2017-11-10 02:45] LABS: Creatine Kinase 50 U/L (39-308)
[2017-11-10 06:07] LABS: Creatine Kinase 47 U/L (39-308)
--- NOTE | 2017-11-10 08:17 | P.HPCA ---
History of Present Illness Primary Care Physician: Dr. Walker Grimes Chief Complaint: Palpations History of Present Illness: 57 year old male with history of hypertension, diabetes, and SVT presents to ER for further evaluation of palpations. Onset 3 weeks ago after smoking "bad marijuana." Since this time has been seen in ER multiple times for palpations. EKG on 11/06/17 SVT. Given RX for metoprolol and is scheduled for new patient appointment with DR. Torres on 11/22/17. Last evening around 8pm developed nonexertional palpations, felt on left side chest with radiation of palpations to left side of neck. No chest pain/discomfort. Associated symptoms of dizziness , sensation in throat, and nausea. No vomiting or diaphoresis. Duration 30-60 minutes. No precipitating or relieving factors. Past cardiac testing-remote treadmill cardiac testing 14 years ago. No known coronary artery disease. - Diagnosis (1) Heart palpitations (2) Alcohol abuse (3) Hypertension (4) Diabetes mellitus Review of Systems All other systems reviewed negative except as stated in [facility] - History History Provided By: Patient (Family history-noncontributory for early onset cardiovascular disease) - Medical History Medical History: Medical History (Last Reviewed 11/10/17 @ 10:53 by JAMIE Garland) Prostatitis (Acute) Murmur, cardiac (Acute) Heart palpitations (Acute) Hypercholesteremia (Acute) Hypertension (Chronic) Diabetes mellitus (Chronic) - Surgical History Surgical History: Surgical History (Last Reviewed 11/10/17 @ 10:53 by JAMIE Garland) No history of previous surgery - Tobacco History Second Hand Smoke Exposure: Yes Tobacco Use In Past 30 Days: No Smoking Status: Never smoker - Alcohol History How Often Do You Have a Drink Containing Alcohol: 4 or more times a week ( Drinks 4/16 oz beers daily, attempting to decrease amount of alcohol he consumes ) - Substance Use History Substance History: Past History (Last marijuana use approximatel 3.5 weeks ago, reports he does not plan on ever smoking marijuana again) - Substance Use Type Marijuana Status: Active Route Used: Inhalation Reason for Use: Socialization - Travel History History of Recent Travel: No Recent Travel in the [place] Within the Last 8 Weeks: No Recent Travel Out of the Country Within the Last 8 Weeks: No - Immunization History Tetanus Immunization: Never Vaccinated Hx Influenza Vaccine This Season: No Medications and Allergies Active Medications: Active Medications Acetaminophen (Tylenol) 500 mg PO Q4H PRN PRN Reason: HEADACHE Amlodipine Besylate (Norvasc) 10 mg PO DAILY BITA Famotidine (Pepcid) 20 mg PO BID BITA Nitroglycerin (Nitrostat Sl) 0.4 mg SL Q5M PRN PRN Reason: CHEST PAIN Ondansetron HCl (Zofran Odt) 4 mg PO Q6H PRN PRN Reason: NAUSEA Sodium Chloride (Ns Flush) 2 ml IV.FLUSH UNSCH PRN PRN Reason: FLUSH AFTER USING IV ACCESS Sodium Chloride (Ns Flush) 2 ml IV.FLUSH BID BITA Sodium Chloride (Ns Flush) 2 ml IV.FLUSH PRN PRN PRN Reason: FLUSH AFTER USING IV ACCESS Allergies Allergy/AdvReac Type Severity Reaction Status Date / Time celecoxib Allergy Severe HIVES Verified 11/09/17 21:22 Home Medications Medication Instructions Recorded Confirmed Type glyburide 5 mg PO BID 10/21/17 11/09/17 History lisinopril 40 mg PO DAILY 10/21/17 11/06/17 History metformin 1,000 mg PO DAILY 10/21/17 11/06/17 History pravastatin 10 mg PO DAILY 10/21/17 11/06/17 History amlodipine 10 mg PO DAILY 11/06/17 11/06/17 History ciprofloxacin HCl 500 mg PO BID 11/06/17 11/06/17 History cyclobenzaprine 10 mg PO TID 11/06/17 11/06/17 History tamsulosin 0.4 mg PO DAILY 11/06/17 11/06/17 History amlodipine 10 mg PO DAILY 11/09/17 11/09/17 History Exam Vital signs: Vital Signs 11/09/17 21:22 11/09/17 22:27 11/09/17 22:33 Temperature 98.5 F Pulse Rate 81 62 79 Respiratory Rate 16 18 18 Blood Pressure 166/91 H 148/79 H 182/92 H Pulse Oximetry 100 100 99 11/10/17 01:38 11/10/17 04:00 Temperature 98.3 F Pulse Rate 63 58 L Respiratory Rate 18 17 Blood Pressure 139/67 141/76 H Pulse Oximetry 97 Intake & Output 11/09/17 11/10/17 11/10/17 18:59 06:59 18:59 Intake Total 0 / 0 Balance 0 / 0 Weight 104.326 kg Intake: Oral 0 / 0 Other: # Voids 0 Narrative: GENERAL: Alert WN, WD, NAD, pleasant, -[place] male HEAD: NC, AT EYES: Sclera clear, conjunctiva without injection, pupils equal and round, bilateral cataracts ENT: Mucous membranes pink and moist NECK: Supple, no masses, trachea midline CV: RRR, 3/6 systolic murmur heard best on left sternal border radiating to left neck. No rub, gallop, or JVD. RESP: Clear lungs throughout bilateral, no crackles, wheeze, rhonchi, symmetrical chest rise, nonlabored, able to speak in full sentences ABD: Soft, NT, ND, no masses, positive bowel tones EXT: Pulses +2x4, no dependent edema MS: Normal tone x4 extremities, nontender, no obvious deformities, full range of motion NEURO: CN II through CN XII grossly intact, motor strength 5/5, gait WNL PSYCH: A+O x3, pleasant affect, appropriate speech, mood, insight and judgment SKIN: Normal turgor, normal texture, no lesions, no rashes, brisk capillary refill, thick discolored toenails. Results 11/09/17 22:50 11/09/17 22:50 Cardiac Enzymes 11/09/17 11/09/17 11/10/17 Range/Units 22:50 22:50 01:55 AST 13 L (15-37) U/L Troponin I Less than 0.02 L Less than 0.02 L (0.02-0.05) ng/mL B-Natriuretic Peptide 12 (0-100) pg/mL 11/10/17 Range/Units 05:12 AST (15-37) U/L Troponin I Less than 0.02 L (0.02-0.05) ng/mL B-Natriuretic Peptide (0-100) pg/mL Coagulation 11/09/17 11/09/17 Range/Units 22:50 22:50 PT 10.8 (9.8-11.6) sec APTT 31.0 H (24.3-30.1) sec B-Natriuretic Peptide 12 (0-100) pg/mL CBC 11/09/17 Range/Units 22:50 WBC 7.4 (4.0-11.0) th/mm3 RBC 4.32 L (4.50-5.90) mil/mm3 Hgb 12.6 L (13.0-17.0) gm/dL Hct 37.7 L (39.0-51.0) % Plt Count 328 (150-450) th/mm3 Neut # (Auto) 4.6 (1.8-7.7) th/mm3 Lymph # (Auto) 2.1 (1.0-4.8) th/mm3 [place] # (Auto) 0.6 (0.0-0.9) th/mm3 Eos # (Auto) 0.1 (0.0-0.4) th/mm3 Baso # (Auto) 0.0 (0.0-0.2) th/mm3 Comprehensive Metabolic Panel 11/09/17 Range/Units 22:50 Sodium 135 L (136-145) meq/L Potassium 3.6 (3.5-5.1) meq/L Chloride 99 (98-107) meq/L Carbon Dioxide 30.6 (21.0-32.0) meq/L BUN 12 (7-18) mg/dL Creatinine 0.91 (0.60-1.30) mg/dL Calcium 8.9 (8.5-10.1) mg/dL AST 13 L (15-37) U/L ALT 37 (12-78) U/L Alkaline Phosphatase 70 (45-117) U/L Total Protein 8.4 H (6.4-8.2) g/dL Albumin 3.9 (3.4-5.0) g/dL Intake and Output 11/09/17 11/10/17 11/10/17 22:59 06:59 14:59 Intake Total 0 / 0 Balance 0 / 0 Intake: Oral 0 / 0 Other: # Voids 0 Weight 104.326 kg EKG interpretations - EKG EKG results cardiology: sinus rhythm, normal axis, normal QRS (nsr, nonspecific st t change) Caprini VTE Risk Assessment Caprini VTE Risk Assessment: No/Low Risk (score <= 1) Caprini Risk Assessment Model: Point Value = 1 Point Value = 2 Point Value = 3 Point Value = 5 Age 41-60 Minor surgery BMI > 25 kg/m2 Swollen legs Varicose veins or History of unexplained or recurrent spontaneous Oral contraceptives or hormone replacement Sepsis (< 1 month) Serious lung disease, including pneumonia (< 1 month) Abnormal pulmonary function Acute myocardial infarction Congestive heart failure (< 1 month) History of inflammatory bowel disease Medical patient at bed rest Age 61-74 Arthroscopic surgery Major open surgery (> 45 min) Laparoscopic surgery (> 45 min) Malignancy Confined to bed (> 72 hours) Immobilizing plaster cast Central venous access Age >= 75 History of VTE Family history of VTE Factor V Leiden Prothrombin [id number] Lupus anticoagulant Anticardiolipin antibodies Elevated serum homocysteine Heparin-induced thrombocytopenia Other congenital or acquired thrombophilia Stroke (< 1 month) Elective arthroplasty Hip, pelvis, or leg fracture Acute spinal cord injury (< 1 month) Prophylaxis Regimen: Total Risk Factor Score Risk Level Prophylaxis Regimen 0-1 Low Early ambulation 2 Moderate Order ONE of the following: *Sequential Compression Device (SCD) *Heparin 5000 units SQ BID 3-4 Higher Order ONE of the following medications: *Heparin 5000 units SQ TID *Enoxaparin/Lovenox 40 mg SQ daily (WT < 150 kg, CrCl > 30 mL/min) *Enoxaparin/Lovenox 30 mg SQ daily (WT < 150 kg, CrCl > 10-29 mL/min) *Enoxaparin/Lovenox 30 mg SQ BID (WT < 150 kg, CrCl > 30 mL/min) AND/OR *Sequential Compression Device (SCD) 5 or more Highest Order ONE of the following medications: *Heparin 5000 units SQ TID (Preferred with Epidurals) *Enoxaparin/Lovenox 40 mg SQ daily (WT < 150 kg, CrCl > 30 mL/min) *Enoxaparin/Lovenox 30 mg SQ daily (WT < 150 kg, CrCl > 10-29 mL/min) *Enoxaparin/Lovenox 30 mg SQ BID (WT < 150 kg, CrCl > 30 mL/min) AND *Sequential Compression Device (SCD) Assessment and Plan - Assessment (1) Heart palpitations Code(s): R00.2 - Palpitations Status: Acute Plan: Admitted to chest pain center. ACS ruled out with 3 sets of EKGs and cardiac enzymes. Monitor on telemetry overnight. Telemetry reviewed, no SVT overnight. Seen and evaluated by Dr. Elpidio Quiñones. Proceed with exercise stress test. Denies chest discomfort, rule out ischemia during SVT episodes. Appointment is scheduled with Dr. Torres on 11/22/17. Continue metoprolol after cardiac testing. Reinforced quitting marijuana use. (2) Alcohol abuse Code(s): F10.10 - Alcohol abuse, uncomplicated Status: Chronic Plan: Discussed alcohol cessation. Instructed to quit alcohol use. Verbalized understanding. (3) Hypertension Code(s): I10 - Essential (primary) hypertension Status: Chronic Plan: Continue amlodipine. (4) Diabetes mellitus Code(s): E11.9 - Type 2 diabetes mellitus without complications Status: Chronic Plan: Controlled. Hold metformin at this time until further testing completed. Follow-up with PCP. H&P: Quality - VTE Deep Vein Thrombosis/Pulmonary Embolism Present on Admission: No (3) Hypertension Qualifiers: Hypertension type: unspecified Qualified Code(s): I10 - Essential (primary) hypertension (4) Diabetes mellitus Qualifiers: Diabetes mellitus type: type 2 Diabetes mellitus mcfp insulin use: without ferry terminal agent use Diabetes mellitus complication status: without complication Qualified Code(s): E11.9 - Type 2 diabetes mellitus without complications
[2017-11-10] MEDS ORDERED: Famotidine 20 MG Tablet PO SCH (09:00)
[2017-11-10] MEDS ORDERED: amLODIPine 10 MG Tablet PO SCH (09:00)
--- NOTE | 2017-11-10 11:07 | P.PNCA ---
Subjective Interval history: Patient was seen and examined in context with the nurse practitioner who had already seen and evaluated the patient. The documentation is appropriate and correct. The patient's palpitations appear to be related to SVT which was documented in other than associated with discomfort in the chest which could possibly be due to ischemia. His palpitations seem highly likely to be related to his drug and alcohol abuse patient also has multiple other problems including diabetes hypertension hyperlipidemia. Physical Exam Vital signs: Vital Signs 11/09/17 21:22 11/09/17 22:27 11/09/17 22:33 Temperature 98.5 F Pulse Rate 81 62 79 Respiratory Rate 16 18 18 Blood Pressure 166/91 H 148/79 H 182/92 H Pulse Oximetry 100 100 99 11/10/17 01:38 11/10/17 04:00 11/10/17 08:00 Temperature 98.3 F 97.6 F Pulse Rate 63 58 L 61 Respiratory Rate 18 17 17 Blood Pressure 139/67 141/76 H 148/75 H Pulse Oximetry 97 99 Intake & Output 11/09/17 11/10/17 11/10/17 18:59 06:59 18:59 Intake Total 0 / 0 Balance 0 / 0 Weight 104.326 kg Intake: Oral 0 / 0 Other: # Voids 0 Narrative: Well-nourished well-developed man in no acute distress neck supple no JVD masses nodes or bruits Chest clear to auscultation with no rales wheezes or rhonchi Cardiovascular PMI may be slightly displaced to the left, rhythm is regular, there is a 2/6 systolic murmur radiating over the aortic distribution. No gallops or rubs are noted Abdomen soft nontender no guarding or rebound liver is slightly enlarged Extremities no clubbing cyanosis or edema Assessment and Plan - Assessment (1) Heart palpitations Code(s): R00.2 - Palpitations Status: Acute Plan: His palpitations seem to be related to drug and alcohol abuse. He is aware of his need to stop both of these and indicates that he intends to do so. However he probably also has some lung term cardiomyopathy which is reflected in cardiomegaly on his chest x-ray. He may also have some underlying ischemic heart disease which will be evaluated (2) Alcohol abuse Code(s): F10.10 - Alcohol abuse, uncomplicated Status: Chronic (3) Hypertension Code(s): I10 - Essential (primary) hypertension Status: Chronic (4) Diabetes mellitus Code(s): E11.9 - Type 2 diabetes mellitus without complications Status: Chronic
[2017-11-10 12:42] VITALS: BP 155/86; PULSE 74; RESP 18; TEMP 98.2; O2SAT 98
--- NOTE | 2017-11-10 17:10 | ECG ---
Date Performed: 11/10/2017 Time Performed: 05:04:34 PTAGE: 57 years EKG: ELECTRONIC ATRIAL PACEMAKER NONSPECIFIC T-WAVE ABNORMALITY ABNORMAL RHYTHM ECG Since the PREVIOUS TRACING , no significant change noted PREVIOUS TRACIN11/09/2017 20.58 DOCTOR: Valencia Carcamo Interpretating Date/Time 11/10/2017 17:09:34
--- NOTE | 2017-11-10 17:13 | ECG ---
Date Performed: 11/10/2017 Time Performed: 01:57:54 PTAGE: 57 years EKG: SINUS BRADYCARDIA NONSPECIFIC T-WAVE ABNORMALITY BORDERLINE ECG Since the PREVIOUS TRACING , no significant change noted DOCTOR: Valencia Carcamo Interpretating Date/Time 11/10/2017 17:12:11
--- NOTE | 2017-11-10 17:20 | ECG ---
Date Performed: 11/09/2017 Time Performed: 20:58:55 PTAGE: 57 years EKG: Sinus rhythm POSSIBLE LEFT ATRIAL ENLARGEMENT NONSPECIFIC T-WAVE ABNORMALITY BORDERLINE ECG Since the PREVIOUS TRACING , no significant change noted PREVIOUS TRACIN11/06/2017 02.53 DOCTOR: Valencia Carcamo Interpretating Date/Time 11/10/2017 17:19:27
--- NOTE | 2017-11-11 10:55 | TR ---
Date Performed: 11/10/2017 Time Performed: 10:55:21 DOCTOR: Brendan Prabhakar DRUG LIST: CLINICAL HISTORY: CHEST PAIN REASON FOR TEST: Angina REASON FOR ENDING: OBSERVATION: CONCLUSION: [employer] protocol completed. Stopped sec to exceeding target heart rate and artifact, u nable to safety read EKG at peak. No reprod chest discomfort. Artifact resolved after treadmill stopp ed. No st t segment change at peak. Frequent PVC and couplets during recovery. Normal bp response. Go od exercise tolerance, patient likely could walk longer, test stopped premature due to artifact. No c hest pain. Recovery quick and unremarkable other than ectopy as stated above. COMMENTS: Conclusion: Normal treadmill exercise. No evidence of ischemia.
== END 2017-11-10 16:14 | disposition home or self-care (01) ==
LOC: NEPFCDU 20:31 → NEDA 20:31 → NEPE 20:31 → NEDA 11-10 04:00 → NEPFCDU 11-10 04:16
PROVIDERS: ADMIT Internal Medicine Interventional Cardiology; ATTEND Internal Medicine Interventional Cardiology